=== PATIENT | female | born 1975 | race Caucasian/White ===

== ENCOUNTER 2016-11-30 09:12 | Emergency (ER) | payer OTHER ==
[2016-11-30 09:20] VITALS: BP 107/56; PULSE 88; TEMP 99; BMI 28.7
--- NOTE | 2016-11-30 10:22 | PDOC ---
History of Present Illness - General Chief Complaint: Sore Throat Stated Complaint: FEVER, THROAT PAIN Time Seen by Provider: 11/30/16 09:34 History Source: Patient Exam Limitations: No Limitations - History of Present Illness Initial Comments: 11/30/16 10:17 Patient is a 41 old female, no significant medical history currently on no medication presents with 10 days of cough, fever, facial pressure and pain, throat pain. Past Medical History: Denies. Allergies: No known allergies Medications: None Family History: Non-contributory Social History: Denies smoking, alcohol use, or IVDU Review of Systems GENERAL/CONSTITUTIONAL: Tactile fever, generalized aches and pains No weight change. HEAD, EYES, EARS, NOSE AND THROAT: No change in vision. No ear pain or discharge. Sore throat CARDIOVASCULAR: No chest pain or shortness of breath. RESPIRATORY: Productive cough, no wheezing, or hemoptysis. GASTROINTESTINAL: No nausea, vomiting, diarrhea or constipation. No rectal bleeding. GENITOURINARY: No dysuria, frequency, or change in urination. MUSCULOSKELETAL: No joint or muscle swelling or pain. No neck or back pain. SKIN AND BREASTS: No rash or easy bruising. NEUROLOGIC: No headache, vertigo, loss of consciousness, or loss of sensation. PSYCHIATRIC: No depression or anxiety. ENDOCRINE: No increased thirst. No abnormal weight change. HEMATOLOGIC/LYMPHATIC: No anemia, easy bleeding, or history of blood clots. ALLERGIC/IMMUNOLOGIC: No hives or skin allergy. No latex allergy. Physical Exam: GENERAL: The patient is awake, alert, and fully oriented, in no acute distress. EYES: Pupils equal, round and reactive to light, extraocular movements intact, sclera anicteric, conjunctiva clear. ENT: Ears normal, nares patent, oropharynx clear without exudates. Moist mucous membranes. No uvula deviation. + Sinus pressure and pain NECK: Normal range of motion, supple without lymphadenopathy, JVD, or masses. LUNGS: Breath sounds equal, clear to auscultation bilaterally. No wheezes, and no crackles. HEART: Regular rate and rhythm, normal S1 and S2 without murmur, rub or gallop. ABDOMEN: Soft, nontender, normoactive bowel sounds. No guarding, no rebound. No masses. No bruising or abrasions MUSCULOSKELETAL: Normal range of motion, no edema. No clubbing or cyanosis. No cords, erythema, or tenderness. No CVA Tenderness with fist. NEUROLOGICAL: Cranial nerves II through XII grossly intact. Normal speech, normal gait. SKIN: Warm, Dry, normal turgor, no rashes or lesions noted. Past History - Past Medical History Allergies/Adverse Reactions: Allergies Allergy/AdvReac Type Severity Reaction Status Date / Time Penicillins Allergy HIVES, Verified 11/30/16 09:20 ITCHING Home Medications: Ambulatory Orders Doxycycline Hyclate [Vibramycin -] 100 mg PO BID #14 cap 11/30/16 Asthma: No Cancer: No Cardiac Disorders: No Diabetes: No HTN: No Seizures: No Thyroid Disease: No - Surgical History Cholecystectomy: Yes - Suicide/Smoking/Psychosocial Hx Smoking Status: No Smoking History: Never smoked Have you smoked in the past 12 months: No Number of Cigarettes Smoked Daily: 0 Hx Alcohol Use: Yes (SOCIAL) Drug/Substance Use Hx: No Hx Substance Use Treatment: No *Physical Exam - Vital Signs Last Vital Signs Temp Pulse Resp BP Pulse Ox 99.0 F 88 20 107/56 98 11/30/16 09:17 11/30/16 09:17 11/30/16 09:17 11/30/16 09:17 11/30/16 09:17 ED Treatment Course - ADDITIONAL ORDERS Additional order review: 11/30/16 09:50 Influenza Types A,B Antigen (DIOR) - Final Nasopharyngeal Swab - Final Medical Decision Making - Medical Decision Making 11/30/16 10:34 A/P: Patient here for evaluation of generalized aches and pains, weakness, tactile fever, sore throat and sinus pressure and pain. Based upon patient's clinical presentation there is no criteria that meet suggestion of strep pharyngitis patient does have clinical signs of sinusitis. Based upon length of illness we'll test for influenza Influenza is negative, will DC patient on doxycycline for sinusitis and upper respiratory infection. Patient with allergy to penicillin. I discussed the physical exam findings, ancillary test results and final diagnoses with the patient. I answered all of the patient's questions. The patient was satisfied with the care received and felt comfortable with the discharge plan and treatment plan. The patient will call to arrange follow-up and will return to the Emergency Department with any new, persistent or worsening symptoms. *DC/Admit/Observation/Transfer Diagnosis at time of Disposition: Sinusitis Qualifiers: Sinusitis location: frontal Chronicity: acute Recurrence: non-recurrent Qualified Code(s): J01.10 - Acute frontal sinusitis, unspecified Upper respiratory infection Qualifiers: URI type: unspecified URI Qualified Code(s): J06.9 - Acute upper respiratory infection, unspecified - Discharge Dispostion Disposition: HOME Condition at time of disposition: Good Admit: No - Prescriptions Prescriptions: Doxycycline Hyclate [Vibramycin -] 100 mg PO BID #14 cap - Referrals Referrals: [facility] [Provider Group] - Patient Instructions Printed Discharge Instructions: Sinusitis Additional Instructions: Your influenza test was negative Please take antibiotics as ordered until completed Keep head of bed elevated 45 when sleeping Treatments every 4 hours as needed Cool air humidifier Motrin for fever greater than 101 Followup in the primary care doctor's office in 2 days for evaluation. If any respiratory distress, increased cough, inability to drink, increased wheezing please return immediately to emergency department.
== END 2016-11-30 10:32 | disposition home or self-care (01) ==
LOC: JERFT 09:12
DX: J01.10 Acute frontal sinusitis, unspecified (principal)
CPT/HCPCS: 87804; 99281-25

== ENCOUNTER 2017-11-02 13:30 | Emergency (ER) | payer OTHER ==
[2017-11-02 13:35] VITALS: BMI 30.2
--- NOTE | 2017-11-02 13:51 | PDOC ---
History of Present Illness - General Chief Complaint: Pain Stated Complaint: PAIN, HEADACHE Time Seen by Provider: 11/02/17 13:48 - History of Present Illness Initial Comments: 11/02/17 14:28 42 yo F w/ no sig pmh presents with a week of diffuse abdominal pain, lower back pain, chest pain, SOB, headache, rigors, subjective fevers, chills, nausea and vomiting - NBNB. She reports that the abdominal pain is what bothers her the most. The pain radiates from her Left flank down to her vagina. She also has pain in her right flank. She denies any recent infections. She admits to having a history of kidney stones. She endorses significant dysuria, frequency, and urgency but denies hematuria. Allergies: Penicillin. PCP: does not have one. Social hx: Denies alcohol or cigarette use. Past History - Past Medical History Allergies/Adverse Reactions: Allergies Allergy/AdvReac Type Severity Reaction Status Date / Time Penicillins Allergy HIVES, Verified 11/02/17 13:32 ITCHING Home Medications: Ambulatory Orders Doxycycline Hyclate 100 mg PO BID #14 tablet 11/02/17 Asthma: No Cancer: No Cardiac Disorders: No COPD: No DVT: No Diabetes: No HTN: No Seizures: No Thyroid Disease: No - Surgical History Cholecystectomy: Yes - Suicide/Smoking/Psychosocial Hx Smoking Status: No Smoking History: Never smoked Have you smoked in the past 12 months: No Number of Cigarettes Smoked Daily: 0 Information on smoking cessation initiated: No Hx Alcohol Use: Yes (SOCIAL) Drug/Substance Use Hx: No Substance Use Type: None Hx Substance Use Treatment: No Review of Systems - Review of Systems Comments:: 11/02/17 14:35 CONSTITUTIONAL: Present: fever, chills, generalized weakness, malaise Absent: diaphoresis, loss of appetite HEENT: Absent: rhinorrhea, nasal congestion, throat pain, throat swelling, difficulty swallowing, mouth swelling, ear pain, eye pain, visual Changes CARDIOVASCULAR: Present: chest pain Absent: syncope, palpitations, irregular heart rate, lightheadedness, peripheral edema RESPIRATORY: Present: shortness of breath Absent: cough, dyspnea with exertion, orthopnea, wheezing, stridor, hemoptysis GASTROINTESTINAL: Present: Abdominal pain, nausea, vomiting Absent: abdominal distension, diarrhea, constipation, melena, hematochezia GENITOURINARY: Present: dysuria, frequency, urgency, flank pain, genital pain Absent: hesitancy, hematuria MUSCULOSKELETAL: Present: myalgia Absent: arthralgia, joint swelling SKIN: Absent: rash, itching, pallor HEMATOLOGIC/IMMUNOLOGIC: Absent: easy bleeding, easy bruising, lymphadenopathy, frequent infections ENDOCRINE: Absent: unexplained weight gain, unexplained weight loss, heat intolerance, cold intolerance NEUROLOGIC: Present: Headache Absent: focal weakness or paresthesias, dizziness, unsteady gait, seizure, mental status changes, bladder or bowel incontinence PSYCHIATRIC: Absent: anxiety, depression, suicidal or homicidal ideation, hallucinations. *Physical Exam - Vital Signs Last Vital Signs Temp Pulse Resp BP Pulse Ox 99.8 F H 68 18 106/58 L 100 11/02/17 13:33 11/02/17 13:33 11/02/17 13:33 11/02/17 13:33 11/02/17 13:33 - Physical Exam Comments: 11/02/17 14:39 PELVIC EXAM: There is significant amount of pus in the vaginal vault. There is significant R adnexal TTP. There is also significant CMT. Visualized the IUD string. GENERAL: Well developed, well nourished. Awake and alert. Patient is in mild distress. HEENT: Normocephalic, atraumatic. PERRLA, EOMI. No conjunctival pallor. Sclera are non- icteric. Moist mucous membranes. Oropharynx is clear. NECK: Supple. Full ROM. No JVD. No thyromegaly. No lymphadenopathy. CARDIOVASCULAR: Regular rate and rhythm. No murmurs, rubs, or gallops. Distal pulses are 2+ and symmetric. PULMONARY: No evidence of respiratory distress. Lungs clear to auscultation bilaterally. No wheezing, rales or rhonchi. ABDOMINAL: There is significant discomfort upon palpation of both the right and left lower quadrants. The abdomen is not distended and there is no rebound or guarding. Normoactive bowel sounds. MUSCULOSKELETAL Normal range of motion at all joints. No bony deformities or tenderness. No CVA tenderness. EXTREMITIES: No cyanosis. No clubbing. No edema. No calf tenderness. SKIN: Warm and dry. Normal capillary refill. No rashes. No jaundice. NEUROLOGICAL: Alert, awake, appropriate. Cranial nerves 2-12 intact. No deficits to light touch in face, upper extremities and lower extremities. No motor deficits in the in face, upper extremities and lower extremities. Normal speech. Gait is normal without ataxia. PSYCHIATRIC: Cooperative. Good eye contact. Appropriate mood and affect. 11/02/17 19:50 ED Treatment Course - LABORATORY CBC & Chemistry Diagram: 11/02/17 14:55 11/02/17 14:55 Medical Decision Making - Medical Decision Making 11/02/17 14:43 42 yo F here with many non-focused complaints including lower abdominal pain, lower back pain, chest pain, SOB, fevers, headache, myalgias. DD is very large but includes: UTI/pylo, renal colic, other gynecologic disease , , PID, influenza, pneumonia, ACS, migraine/tension CHANG, pancreatitis. Plan: Lab workup, trop, lipase, urine, hcg, ekg, CXR, pelvic US, CTAP, offirmev , IVF, re-assess. Labwork, urine, ekg, and US were all unremarkable. Based on pelvic exam this clinical presentation seems to be most consistent with PID. Consulted Dr. Moore and our plan is to take out the patient's IUD then admit her. -took out IUD without complication. - Treating for PID with ceftriaxone and azithromycin. -CT unremarkable. Will DC patient with CLIENT LIAISON follow up. *DC/Admit/Observation/Transfer Diagnosis at time of Disposition: PID (acute pelvic inflammatory disease) - Discharge Dispostion Disposition: HOME Condition at time of disposition: Improved Decision to Admit order: No - Prescriptions Prescriptions: Doxycycline Hyclate 100 mg PO BID #14 tablet - Referrals Referrals: Tammy Moore MD [Staff Physician] - - Patient Instructions Printed Discharge Instructions: DI for Pelvic Inflammatory Disease, DI for Intrauterine Device Removal, Having Trouble Sleeping?, Creating a Healthy Sleep Routine Additional Instructions: You came to the Emergency room with severe abdominal pain. We diagnosed you with pelvic inflammatory disease - please see handout for explanation. It is very important that you follow up with a artist's model in the next 3 to 5 days to make sure you are getting better and your pain is under control. We have attached the number for a artist's model for you to call. Take motrin as needed for pain control. We are prescribing you an antibiotic to your pharmacy. Please make sure to go pick it up. Take the medication twice a day for the next 10 days. Please come back to the emergency room if your pain worsens, you start bleeding alot for your vagina, you develop a high fever, start vomiting or have any other new or worsening concerns. Print Language: JAPANESE - Post Discharge Activity
[2017-11-02] MEDS ORDERED: SODIUM CHLORIDE 0.9% 500 ML INFUS.BAG IV ONE (14:24)
[2017-11-02] MEDS ORDERED: ACETAMINOPHEN 1000 MG/100 ML VIAL (NON FORMULARY) IVPB ONE ×2 (14:24→20:02)
[2017-11-02] MEDS ORDERED: ACETAMINOPHEN INJECTION 100 ML IVPB ONE ×2 (14:40→20:16)
[2017-11-02 15:05] LABS: BASO % 0.9 % (0-2.0); EOS % 1.7 % (0-4.5); HEMATOCRIT 40.2 % (32.4-45.2); HEMOGLOBIN 13.5 GM/dL (10.7-15.3); LYMPH % 29.3 % (8-40); MCH 32.4 pg (25.7-33.7); MCHC 33.7 g/dl (32.0-36.0); MEAN PLT VOLUME 10.2 fl (7.5-11.1); MONO % 5.8 % (3.8-10.2); NEUT % 62.3 % (42.8-82.8); PLATELET COUNT 218 K/MM3 (134-434); RBC 4.18 M/mm3 (3.60-5.2); RDW 13.2 % (11.6-15.6); WHITE BLOOD COUNT 7.3 K/mm3 (4.0-10.0)
--- NOTE | 2017-11-02 15:34 | PDOC ---
Attending Attestation - HPI HPI: 11/02/17 15:54 The patient is a 42 year old female, with no significant PMH, who presents to the emergency department with one week of diffuse abdominal pain, lower back pain, chest pain, shortness of breath, headache, subjective fever, chills, nausea and vomiting (non bloody, non bilious). The patient states the diffuse abdominal pain radiates from the left flank down to her pelvic region. The patient states she has a history of kidney stones. The patient also endorses dysuria, frequency and urgency. Allergies: Penicillin - Physicial Exam PE: 11/02/17 15:57 Vitals: Triage vital signs reviewed General Appearance: No acute distress, well nourished, well developed Head: Atraumatic Neck: Supple; No nuchal rigidity Chest Wall: Nontender Cardiac: Regular rate and rhythm, no murmurs, no rubs, no gallops Lungs: Clear to auscultation bilateral, good air movement bilaterally Abdomen: (+) Right and left lower quadrant tenderness. No rebound or guarding. Soft, nondistended, normal bowel sounds. Rectal: Exam deferred Extremities: Full range of motion to all extremities, no cyanosis, clubbing, or edema Skin: Warm and dry, no rashes or lesions, no rash, no petechiae Neuro: AOX3; Cranial Nerves 2-12 grossly intact, Strength intact to all extremities, Sensation intact to all extremities, gait normal Psych: Normal mood, normal affect <Angel Bonilla - Last Filed: 11/02/17 15:57> - Resident Resident Name: Angel Talley - ED Attending Attestation I have performed the following: I have examined & evaluated the patient, The case was reviewed & discussed with the resident, I agree w/resident's findings & plan, Exceptions are as noted - Medical Decision Making 11/02/17 18:21 History and examination concerning for infected IUD. Ultrasound pending. We'll remove IUD and treat with broad-spectrum antibiotics for PID Dr. Marquez to follow up patient and dispel. <Demetrius Card - Last Filed: 11/02/17 18:22> Attestations - Attestations 11/02/17 15:55 Documentation prepared by Angel Bonilla, acting as medical receptionist biller for Demetrius Card MD. <Angel Bonilla - Last Filed: 11/02/17 15:57>
[2017-11-02 15:43] LABS: ALBUMIN 3.8 g/dl (3.4-5.0); ALK PHOS 67 U/L (45-117); ANION GAP 5 MMOL/L (8-16); BILIRUBIN,TOTAL 0.4 mg/dL (0.2-1); BLOOD UREA NITROGEN 15 mg/dL (7-18); CALCIUM 8.6 mg/dL (8.5-10.1); CHLORIDE 109 mmol/L (98-107); CO2 28 mmol/L (21-32); CREATININE 0.6 mg/dL (0.55-1.3); GLUCOSE,RANDOM 98 mg/dL (74-106); LIPASE 172 U/L (73-393); POTASSIUM 3.6 mmol/L (3.5-5.1); SGOT/AST 18 U/L (15-37); SGPT/ALT 30 U/L (13-61); SODIUM 141 mmol/L (136-145); TOT PROT 7.7 g/dl (6.4-8.2)
[2017-11-02 16:58] LABS: URINE APPEARANCE CLEAR; URINE BILIRUBIN NEGATIVE (<2.0 mg/dL); URINE COLOR STRAW; URINE GLUCOSE (UA) NEGATIVE (NEGATIVE); URINE KETONE NEGATIVE (NEGATIVE); URINE LEUK ESTERASE NEGATIVE (NEGATIVE); URINE NITRITE NEGATIVE (NEGATIVE); URINE PROTEIN NEGATIVE (NEGATIVE); URINE UROBILINOGEN NEGATIVE mg/dL (0.2-1.0)
--- NOTE | 2017-11-02 18:54 | PDOC ---
*Physical Exam - Vital Signs Last Vital Signs Temp Pulse Resp BP Pulse Ox 99.8 F H 68 18 106/58 L 100 11/02/17 13:33 11/02/17 13:33 11/02/17 13:33 11/02/17 13:33 11/02/17 13:33 - Physical Exam Comments: 11/02/17 18:51 Gen: aaox3, uncomfortable heart: +s1s2 reg lungs: cta b/l abd: soft, nd, +mild ttp lower pelvic region : external genitlia normal, IUD in place, moderate amount of cream colored discharge ext: no c/c/e ED Treatment Course - LABORATORY CBC & Chemistry Diagram: 11/02/17 14:55 11/02/17 14:55 - ADDITIONAL ORDERS Additional order review: Laboratory Results 11/02/17 11/02/17 11/02/17 16:40 16:40 14:55 Sodium Potassium Chloride Carbon Dioxide Anion Gap BUN Creatinine Creat Clearance w eGFR Random Glucose Lactic Acid 0.8 Calcium Total Bilirubin AST ALT Alkaline Phosphatase Creatine Kinase Troponin I C-Reactive Protein Total Protein Albumin Lipase Urine Color Straw Urine Appearance Clear Urine pH 7.0 Ur Specific [place] 1.006 Urine Protein Negative Urine Glucose (UA) Negative Urine Ketones Negative Urine Blood Negative Urine Nitrite Negative Urine Bilirubin Negative Urine Urobilinogen Negative Ur Leukocyte Esterase Negative Urine HCG, Qual Negative 11/02/17 11/02/17 14:55 14:55 Sodium 141 Potassium 3.6 Chloride 109 H Carbon Dioxide 28 Anion Gap 5 L BUN 15 Creatinine 0.6 Creat Clearance w eGFR > 60 Random Glucose 98 Lactic Acid Calcium 8.6 Total Bilirubin 0.4 AST 18 ALT 30 Alkaline Phosphatase 67 Creatine Kinase 100 Troponin I < 0.02 C-Reactive Protein < 0.3 Total Protein 7.7 Albumin 3.8 Lipase 172 Urine Color Urine Appearance Urine pH Ur Specific [place] Urine Protein Urine Glucose (UA) Urine Ketones Urine Blood Urine Nitrite Urine Bilirubin Urine Urobilinogen Ur Leukocyte Esterase Urine HCG, Qual 11/02/17 14:42 Influenza Types A,B Antigen - Final Nasopharyngeal Swab - Final 11/02/17 14:55 RBC 4.18 MCV 96.0 MCHC 33.7 RDW 13.2 MPV 10.2 Neutrophils % 62.3 Lymphocytes % 29.3 Monocytes % 5.8 Eosinophils % 1.7 Basophils % 0.9 - Medications Given in the ED: ED Medications Discontinued Medications Generic Name Dose Route Start Last Admin Trade Name Saray PRN Reason Stop Dose Admin Acetaminophen 1,000 mg 11/02/17 14:24 11/02/17 14:50 Ofirmev Injection - IVPB 11/02/17 14:25 1,000 mg ONCE ONE Administration Sodium Chloride 1,000 ml 11/02/17 14:24 11/02/17 14:50 Normal Saline - IV 11/02/17 14:25 1,000 ml ONCE ONE Administration Medical Decision Making - Medical Decision Making 11/02/17 18:52 a/p: 42yo female with PID on pelvic exam signed out by the prior attending pending IUD removal and ct imaging -repeat pelvic exam showed IUD in place, IUD removed with mcgills forcep without difficulty, mild bleeding at the cervix -pt to CT scan 11/02/17 21:05 pt without acute findings on ct pt requesting to go home PID on exam - will give abx -pt will follow up with Dr. Moore -Pt understands all reasons to return to the ED and need for follow up with OB/ DICE PERSON *DC/Admit/Observation/Transfer Diagnosis at time of Disposition: PID (acute pelvic inflammatory disease) - Discharge Dispostion Disposition: HOME Condition at time of disposition: Improved Decision to Admit order: No - Referrals Referrals: Tammy Moore MD [Staff Physician] - - Patient Instructions - Post Discharge Activity
[2017-11-02 18:59] VITALS: BP 125/71; PULSE 73; TEMP 98.7
[2017-11-02] MEDS ORDERED: ONDANSETRON 4 MG/2 ML VIAL IVPUSH ONE (20:02)
[2017-11-02] MEDS ORDERED: AZITHROMYCIN 500 MG TABLET PO ONE (20:04)
[2017-11-02] MEDS ORDERED: AZITHROMYCIN 500 MG TABLET ONE (20:16)
[2017-11-02] MEDS ORDERED: cefTRIAXone SODIUM 1 GM VIAL ONE (20:16)
[2017-11-02] MEDS ORDERED: LIDOCAINE HCL/PF 1% SDV 5ML VIAL ONE (20:16)
[2017-11-02] MEDS ORDERED: ONDANSETRON 4 MG/2 ML VIAL ONE (20:16)
--- NOTE | 2017-11-03 11:26 | EKG ---
Test Reason : Blood Pressure : / mmHG Vent. Rate : 055 BPM Atrial Rate : 055 BPM P-R Int : 152 ms QRS Dur : 080 ms QT Int : 434 ms P-R-T Axes : 050 045 026 degrees QTc Int : 415 ms SINUS BRADYCARDIA OTHERWISE NORMAL ECG NO PREVIOUS ECGS AVAILABLE Confirmed by GLENN WASHINGTON, SELMA ([id number]) on 11/03/2017 11:26:43 AM Referred By: Confirmed By:SELMA ELIZABETH MD
== END 2017-11-02 21:55 | disposition home or self-care (01) ==
LOC: JER 13:30
PROC: 3E02329 Introduction of Other Anti-infective into Muscle, Percutaneous Approach (ICD-10-PCS; principal; 2017-11-02)
PROC: 3E033NZ Introduction of Analgesics, Hypnotics, Sedatives into Peripheral Vein, Percutaneous Approach (ICD-10-PCS; 2017-11-02)
PROC: 3E033NZ Introduction of Analgesics, Hypnotics, Sedatives into Peripheral Vein, Percutaneous Approach (ICD-10-PCS; 2017-11-02)
PROC: 3E033GC Introduction of Other Therapeutic Substance into Peripheral Vein, Percutaneous Approach (ICD-10-PCS; 2017-11-02)
PROC: 3E033GC Introduction of Other Therapeutic Substance into Peripheral Vein, Percutaneous Approach (ICD-10-PCS; 2017-11-02)
DX: N73.9 Female pelvic inflammatory disease, unspecified (principal)
CPT/HCPCS: 36415; 71046-TC-FY; 74177-TC; 76830-TC; 76856-TC; 80053; 81003; 82550; 83605; 83690; 84484; 84703; 85025; 85651; 86140; 87086; 87491; 87591; 87661; 87804; 93005; 93010; 99282-25; J0131

== ENCOUNTER 2018-02-19 09:59 | Emergency (ER) | payer OTHER ==
[2018-02-19 10:57] VITALS: BP 105/48; PULSE 57; TEMP 98; BMI 28.3
--- NOTE | 2018-02-19 11:37 | PDOC ---
Attending Attestation - HPI HPI: 02/19/18 13:34 42 y/o female approximately at 6-8 weeks gestation (no pre care initiated) who presents with a 10 day hx of waxing and waning vaginal bleeding with associated mild back pain and bilateral suprapubic abdominal pain. Patient denies h/o miscarriages, abortions, or bleeding during previous pregnancies. Pt endorses small clots. Patient just obtained insurance coverage recently and plans to receive pre- care. Denies any cp, sob, fever/chills, dysuria, frequency, diarrhea, melena, bpr. LMP late october <George Dale - Last Filed: 02/19/18 13:34> - Resident Resident Name: Ariadna Nicole - ED Attending Attestation I have performed the following: I have examined & evaluated the patient, The case was reviewed & discussed with the resident, I agree w/resident's findings & plan, Exceptions are as noted - Physicial Exam PE: 02/19/18 12:58 GENERAL: The patient is awake, alert, and fully oriented, Nontoxic - in no acute distress. HEAD: Normocephalic, atraumatic. EYES: extraocular movements intact, sclera anicteric, conjunctiva clear. LUNGS: Breath sounds equal, clear to auscultation bilaterally. No wheezes, no rhonchi, no rales. HEART: Regular rate and rhythm, ABDOMEN: no cva tenderness, mild suprapubic tenerness NEUROLOGICAL: No facial assymetry, Normal speech, moving all 4 extremities spntaneously and symmetrically - Medical Decision Making 02/19/18 11:34 42y F hx of G7G6 approx 6-8 weeks gestation by dates presents with vaginal bleeding since the beginning of the mouth, but hasnt been seen due to insurance issues. Vag bleeding alitle heavier than a period. endorses mild lbp, and low abd pain. no fever/chills, lightheadeness, denies prior problems with prior pregnancies denies vitamins denies clots. 02/19/18 14:34 pts UHCG + at 1.8k no cardiac activity suspect demise will dw bead wrapper, <JamieRomel - Last Filed: 02/22/18 09:21> Attestations - Attestations Documentation prepared by George Dale, acting as medical reception for Romel Ayala MD. <George Dale - Last Filed: 02/19/18 13:34>
--- NOTE | 2018-02-19 12:01 | PDOC ---
History of Present Illness - General Chief Complaint: Vaginal Bleeding Stated Complaint: Vaginal Bleeding Time Seen by Provider: 02/19/18 11:08 - History of Present Illness Initial Comments: Cindy Parish is an otherwise healthy woman, currently , who presents with vaginal bleeding for the past 10 days. She reports that her menstrual period is irregular, but she believes that she is about 6-8wks with her LMP in December. She has not yet established care. Ms Parish says that the bleeding has lasted for the past 10 days continuously , but the amount of bleeding varies from light spotting to heavy bleeding similar to a period. She has had mild suprapubic and low back pain for several weeks but denies any severe, acute, or radiating pain. She has not had any dysuria, urinary frequency, or change in bowel habits. She has not noted clots or tissue along with the bleeding. She denies any previous miscarriages or abortions and never had any vaginal bleeding during her previous pregnancies. There is not any change in the bleeding today; Ms Parish was not seen previously because she did not have insurance until recently and was finally able to come for evaluation. Past History - Past Medical History Allergies/Adverse Reactions: Allergies Allergy/AdvReac Type Severity Reaction Status Date / Time Penicillins Allergy HIVES, Verified 02/19/18 10:55 ITCHING Home Medications: Ambulatory Orders NK [No Known Home Medication] 02/19/18 Asthma: No Cancer: No Cardiac Disorders: No COPD: No DVT: No Diabetes: No HTN: No Seizures: No Thyroid Disease: No - Surgical History Cholecystectomy: Yes - Immunization History Immunization Up to Date: Yes - Suicide/Smoking/Psychosocial Hx Smoking Status: No Smoking History: Never smoked Have you smoked in the past 12 months: No Number of Cigarettes Smoked Daily: 0 Hx Alcohol Use: Yes (SOCIAL) Drug/Substance Use Hx: No Substance Use Type: None Hx Substance Use Treatment: No Review of Systems - Review of Systems Comments:: General: No fevers, no chills, no weight or appetite change, no malaise HEENT: No changes in vision, no changes in hearing, no congestion, no sore throat CV: No chest pain, no palpitations, no LE edema Pulm: No SOB, no cough, no wheezing GI: No nausea or vomiting, no change in bowel habits, no melena : No frequency, no urgency, no dysuria. +vaginal bleeding, +currently Musc: No joint swelling, no recent injury. Skin: No rash, no lesions, no erythema Endo: No excessive thirst, no heat/cold intolerance Heme: No unusual bruising or bleeding, no swollen glands Neuro: No syncope, no numbness/tingling, no focal weakness Vasc: No claudication Psych: No recent change in mood, no SI or HI *Physical Exam - Vital Signs Last Vital Signs Temp Pulse Resp BP Pulse Ox 98.0 F 57 L 18 105/48 L 97 02/19/18 10:55 02/19/18 10:55 02/19/18 10:55 02/19/18 10:55 02/19/18 10:55 - Physical Exam Comments: General: Comfortable, no acute distress HEENT: PERRL, EOMI, MMM, voice normal, normal neck ROM, no LAD Cards: RRR, no murmur appreciated Pulm: Comfortable on room air, clear to auscultation bilaterally Abd: Soft, nontender, nondistended : Vaginal exam with normal external genitalia, no lesions or abrasions. Dark red blood in vaginal canal w/o clots. No cervical motion tenderness. Os closed on manual exam Ext: Atraumatic. No LE edema. ROM intact. Strength 5/5 and equal bilaterally Vasc: Extremities WWP. Palpable radial and pedal pulses bilaterally Skin: Normal color, no rashes or lesions Neuro: A&Ox3, CN grossly intact, normal speech, motor/sensory grossly intact and symmetric Psych: Mood appropriate to situation Moderate Sedation - Procedure Monitoring Vital Signs: Procedure Monitoring Vital Signs Temperature 98.0 F 02/19/18 10:55 Pulse Rate 57 L 02/19/18 10:55 Respiratory Rate 18 02/19/18 10:55 Blood Pressure 105/48 L 02/19/18 10:55 O2 Sat by Pulse Oximetry (%) 97 02/19/18 10:55 ED Treatment Course - LABORATORY CBC & Chemistry Diagram: 02/19/18 11:50 Medical Decision Making - Medical Decision Making 02/19/18 11:56 Cindy Parish is an otherwise healthy woman approx 6-8wks by LMP who presents with vaginal bleeding for 10 days. - Ddx includes vaginal bleeding in normal , threatened v inevitable v spontaneous , demise, or normal menstruation if not actually - Reports irregular menstrual cycle, not sure how far along her is and has not yet had any care due to insurance issues. Urine preg and bHCG ordered for confirmation - CBC for eval of possible anemia - Vaginal exam with dark blood in vaginal canal; no clear opening of cervical os - Will need US, to be ordered after confirming 02/19/18 13:22 - Labs reviewed. Notable for bHCG 1800 - Transvaginal US ordered to evaluate - UA w/ trace leuk esterase. Cell counts pending 02/19/18 15:02 - US completed. Deformed gestational sac and abnormal pole. No heart beat found. - Discussed results with Ms Parish and her , may represent demise. They state understanding. - Call placed to government contracts manager OB for follow up and recommendations. 02/19/18 15:53 - Call placed to Dr Logan office; is no longer government contracts manager (after 2pm) - Call placed to Dr Moore's office and cell phone x2 w/o answer - Call placed to L&D, no OB attending available until 4pm - Discussed need to wait with pt and . They are requesting to be discharged as they have to moss picker their other children from school. Agreed to wait for additional attempts to reach OB. - Call placed to Dr Roberts at 3:58pm as pt has seen her in the past. 02/19/18 16:10 - Spoke to Dr Moore. She will see Ms Parish in her office tonight - Discussed with Ms Parish and her . They agree to this plan - D/C home with immediate follow-up tonight. Discussed with Dr Jamie Nicole PGY1 *DC/Admit/Observation/Transfer Diagnosis at time of Disposition: heart tones not heard - Referrals Referrals: Tammy Moore MD [Staff Physician] - - Patient Instructions Printed Discharge Instructions: DI for Miscarriage, DI for Threatened Additional Instructions: Discharge Instructions: - You were seen in the emergency department for vaginal bleeding during . - You had blood tests confirming the , but your hormone level was lower than expected. You had an ultrasound that showed a pole ( early ) but the heartbeat could not be found. This may indicate that you had a miscarriage, though it is possible that the heartbeat was not seen for some other reason. - You have an appointment with Dr Teresa YBARRA. She is available in her office until 7pm. - Seek immediate medical care if your bleeding becomes severe, you are soaking through multiple pads per hour, you become lightheaded/dizzy, or you have any other medical emergency including chest pain or shortness of breath. Instrucciones de descarga: - Usted fue atendido en el departamento de emergencias por sangrado vaginal eda el embarazo. - Le hicieron anlisis de ramona que confirmaron el embarazo, jesús mckeon nivel de hormona del embarazo fue ms bajo de lo esperado. Se le realiz sheyla ecografa que mostraba un polo (embarazo temprano) jesús no se pudo encontrar el latido del corazn. [place] puede indicar que tuvo un aborto espontneo, aunque es posible que no se haya visto el latido del corazn por alguna otra razn. - Tiene sheyla lucas con el Dr. Moore ESTA NOCHE. Lyla est disponible en mckeon oficina hasta las 7pm. - Busque atencin mdica inmediata si mckeon sangrado se agrava, est empapando varias almohadillas por hora, se siente mareado o tiene cualquier otra emergencia mdica, incluido dolor en el pecho o falta de aire. Print Language: LITHUANIAN - Post Discharge Activity
[2018-02-19 12:16] LABS: BASO % 0.5 % (0-2.0); EOS % 1.8 % (0-4.5); HEMATOCRIT 37.9 % (32.4-45.2); HEMOGLOBIN 13.3 GM/dL (10.7-15.3); LYMPH % 25.6 % (8-40); MCH 33.2 pg (25.7-33.7); MCHC 35.1 g/dl (32.0-36.0); MEAN CELL VOLUME 94.5 fl (80-96); MEAN PLT VOLUME 10.1 fl (7.5-11.1); MONO % 4.8 % (3.8-10.2); NEUT % 67.3 % (42.8-82.8); PLATELET COUNT 204 K/MM3 (134-434); RBC 4.01 M/mm3 (3.60-5.2); RDW 12.6 % (11.6-15.6); WHITE BLOOD COUNT 7.6 K/mm3 (4.0-10.0)
[2018-02-19 12:18] LABS: URINE APPEARANCE SLCLOUDY; URINE BILIRUBIN NEGATIVE (<2.0 mg/dL); URINE COLOR LTYELLOW; URINE GLUCOSE (UA) NEGATIVE (NEGATIVE); URINE KETONE NEGATIVE (NEGATIVE); URINE LEUK ESTERASE TRACE (NEGATIVE); URINE NITRITE NEGATIVE (NEGATIVE); URINE PROTEIN NEGATIVE (NEGATIVE); URINE UROBILINOGEN NEGATIVE mg/dL (0.2-1.0)
[2018-02-19 15:01] LABS: EPI CELLS 1 /HPF (FEW)
== END 2018-02-19 16:24 | disposition home or self-care (01) ==
LOC: JER 09:59
DX: O26.891 Other specified pregnancy related conditions, first trimester (principal); O02.1 Missed abortion; Z3A.01 Less than 8 weeks gestation of pregnancy
CPT/HCPCS: 36415; 76817-TC; 81003; 81015; 84702; 84703; 85025; 86850; 86900; 86901; 87086; 99283-25